=== PATIENT | female | born 1990 | race Caucasian/White ===

== ENCOUNTER 2017-03-25 12:23 | Emergency (ER) | payer MEDICAID ==
[2017-03-25] MEDS ORDERED: diphenhydrAMINE 50 MG/ML SDV IVPUSH ONE (13:21)
[2017-03-25] MEDS ORDERED: Ketorolac 30 MG/ML SDV IVPUSH ONE (13:21)
[2017-03-25] MEDS ORDERED: Prochlorperazine 10 MG/2 ML SDV IVPUSH ONE (13:21)
[2017-03-25] MEDS ORDERED: Sodium Chloride 0.9% 10 ML Syringe FLUSH PRN (13:21)
--- NOTE | 2017-03-25 13:24 | EDM.PDOC ---
ED HPI GENERAL MEDICAL PROBLEM - General Chief Complaint: Headache Stated Complaint: HEADACHE WITH VOMITING Time Seen by Provider: 03/25/17 13:01 Source of Information: Reports: Patient, Family, RN Notes Reviewed History Limitations: Reports: No Limitations - History of Present Illness INITIAL COMMENTS - FREE TEXT/NARRATIVE: 26-year-old female presents emergency department day complaint of headache, she states she's been ill for the last day or so has light sensitivity and nausea she states he usually does not get migraines but she is concerned this may have developed in the one. She denies any fevers shortness of breath or chest pain no family history for migraine headache Pain Score (Numeric/FACES): 4 - Related Data Allergies Allergy/AdvReac Type Severity Reaction Status Date / Time No Known Allergies Allergy Verified 03/25/17 12:57 Home Meds: Home Meds NK [No Known Home Meds] 03/25/17 [History] Past Medical History - Past Health History Medical/Surgical History: Denies Medical/Surgical History Social & Family History - Tobacco Use Smoking Status *Q: Never Smoker Second Hand Smoke Exposure: No - Recreational Drug Use Recreational Drug Use: No ED ROS GENERAL - Review of Systems Review Of Systems: See Below Constitutional: Denies: Fever, Chills HEENT: Reports: Eye Pain Respiratory: Reports: No Symptoms Cardiovascular: Reports: No Symptoms GI/Abdominal: Reports: Nausea : Reports: No Symptoms Musculoskeletal: Reports: No Symptoms Skin: Reports: No Symptoms Neurological: Reports: Headache - Physical Exam Exam: See Below Text/Narrative:: Pupils equal round reactive to light and accommodation sclera clear no conjunctivitis appreciated. Funduscopic exam reveals sharp disc margins no papilledema noted Exam Limited By: No Limitations General Appearance: Alert, Mild Distress Respiratory/Chest: No Respiratory Distress, Lungs Clear, Normal Breath Sounds, No Accessory Muscle Use Cardiovascular: Regular Rate, Rhythm, No Murmur Course - Vital Signs Last Recorded V/S: Last Vital Signs Temp 98.9 F 03/25/17 13:56 Pulse 97 03/25/17 14:55 Resp 16 03/25/17 14:55 BP 126/73 03/25/17 14:55 Pulse Ox 96 03/25/17 14:55 - Orders/Labs/Meds Orders: Active Orders 24 hr Category Date Time Status Peripheral IV Care [RC] . DIRECTED Care 03/25/17 13:21 Active Sodium Chloride 0.9% [Normal Saline] 1,000 ml Med 03/25/17 13:30 Active IV ASDIRECTED Sodium Chloride 0.9% [Normal Saline] 1,000 ml Med 03/25/17 14:45 Active IV ASDIRECTED Sodium Chloride 0.9% [Saline Flush] Med 03/25/17 13:21 Active 10 ml FLUSH ASDIRECTED PRN Peripheral IV Insertion Adult [OM.PC] Urgent Oth 03/25/17 13:21 Ordered Medication Orders Sodium Chloride (Normal Saline) 1,000 mls @ 999 mls/hr IV ASDIRECTED VICTORINA Last Admin: 03/25/17 14:51 Dose: 999 mls/hr Infusion: 03/25/17 14:47 Dose: 999 mls/hr Admin: 03/25/17 13:46 Dose: 999 mls/hr Sodium Chloride (Normal Saline) 1,000 mls @ 999 mls/hr IV ASDIRECTED VICTORINA Last Admin: 03/25/17 14:52 Dose: 999 mls/hr Sodium Chloride (Saline Flush) 10 ml FLUSH ASDIRECTED PRN PRN Reason: Keep Vein Open Last Admin: 03/25/17 13:46 Dose: 10 ml Meds: Medications Generic Name Dose Route Start Last Admin Trade Name Freq PRN Reason Stop Dose Admin Sodium Chloride 1,000 mls @ 999 mls/hr 03/25/17 13:30 03/25/17 14:51 Normal Saline IV 999 mls/hr ASDIRECTED VICTORINA Administration Sodium Chloride 1,000 mls @ 999 mls/hr 03/25/17 14:45 03/25/17 14:52 Normal Saline IV 999 mls/hr ASDIRECTED VICTORINA Administration Sodium Chloride 10 ml 03/25/17 13:21 03/25/17 13:46 Saline Flush FLUSH 10 ml ASDIRECTED PRN Administration Keep Vein Open Discontinued Medications Generic Name Dose Route Start Last Admin Trade Name Freq PRN Reason Stop Dose Admin Dexamethasone 4 mg 03/25/17 14:38 03/25/17 14:52 Dexamethasone IVPUSH 03/25/17 14:39 4 mg ONETIME ONE Administration Diphenhydramine HCl 25 mg 03/25/17 13:21 03/25/17 13:43 Benadryl IVPUSH 03/25/17 13:22 25 mg ONETIME ONE Administration Haloperidol Lactate 5 mg 03/25/17 14:38 03/25/17 14:54 Haldol IVPUSH 03/25/17 14:39 5 mg ONETIME ONE Administration Ketorolac Tromethamine 30 mg 03/25/17 13:21 03/25/17 13:44 Toradol IVPUSH 03/25/17 13:22 30 mg ONETIME ONE Administration Prochlorperazine Edisylate 5 mg 03/25/17 13:21 03/25/17 13:40 Compazine IVPUSH 03/25/17 13:22 5 mg ONETIME ONE Administration Departure - Departure Time of Disposition: 15:35 Disposition: Home, Self-Care 01 Condition: Good Clinical Impression: Head ache Qualifiers: Headache type: unspecified Headache chronicity pattern: acute headache Intractability: not intractable Qualified Code(s): R51 - Headache - Discharge Information Forms: ED Department Discharge Additional Instructions: Please followup with your primary care provider in 3-5 days if not better, please call return to the emergency department with worsening of symptoms. - My Orders Last 24 Hours: My Active Orders 03/25/17 13:21 Peripheral IV Care [RC] . DIRECTED Sodium Chloride 0.9% [Saline Flush] 10 ml FLUSH ASDIRECTED PRN Peripheral IV Insertion Adult [OM.PC] Urgent 03/25/17 13:30 Sodium Chloride 0.9% [Normal Saline] 1,000 ml IV ASDIRECTED 03/25/17 14:45 Sodium Chloride 0.9% [Normal Saline] 1,000 ml IV ASDIRECTED - Assessment/Plan Last 24 Hours: My Active Orders 03/25/17 13:21 Peripheral IV Care [RC] . DIRECTED Sodium Chloride 0.9% [Saline Flush] 10 ml FLUSH ASDIRECTED PRN Peripheral IV Insertion Adult [OM.PC] Urgent 03/25/17 13:30 Sodium Chloride 0.9% [Normal Saline] 1,000 ml IV ASDIRECTED 03/25/17 14:45 Sodium Chloride 0.9% [Normal Saline] 1,000 ml IV ASDIRECTED Plan: Assessment Acuity = acute Site and laterality = headache Etiology = suspicious for migraine type Manifestations = none Location of injury = Home Lab values = none Plan Had significant improvement combination dexamethasone, Benadryl, Haldol, Compazine and Toradol as well as 2 L of fluid plan is she is going to go home and rest follow up with primary care for further evaluation for migraines Patient was in agreement with the plan all questions were answered, they were instructed to return to the emergency department or call for worsening symptoms. This note was dictated using [employer] voice recognition software please call with any questions.
[2017-03-25] MEDS: Sodium Chloride 0.9% 1,000 ML IV SCH ×2 (13:46→14:51)
[2017-03-25] MEDS ORDERED: Dexamethasone 4 MG/ML SDV IVPUSH ONE (14:38)
[2017-03-25] MEDS ORDERED: Haloperidol Lactate 5 MG/ML SDV IVPUSH ONE (14:38)
[2017-03-25] MEDS ORDERED: Sodium Chloride 0.9% 1,000 ML IV SCH (14:45)
[2017-03-25 14:55] VITALS: BP 126/73
== END 2017-03-25 15:48 | disposition home or self-care (01) ==
LOC: JP.ED 12:23
DX: R51 Headache (principal)
CPT/HCPCS: 96361; 96374; 96375; 99284; J0780; J1100; J1200; J1630; J1885; J7040; J7050